=== PATIENT | male | born 1955 | race African-American/Black ===

== ENCOUNTER 2017-09-12 12:44 | Inpatient (IN) | payer OTHER ==
[2017-09-12 13:50] VITALS: BMI 22.2
--- NOTE | 2017-09-12 16:20 | HP ---
CIWA Score - CIWA Score Nausea/Vomitin-No Nausea/No Vomiting Muscle Tremors: 4-Moderate,w/Arms Extend Anxiety: 2 Agitation: 0-Normal Activity Paroxysmal Sweats: 1-Minimal Palms Moist Orientation: 0-Oriented Tacttile Disturbances: 0-None Auditory Disturbances: 1-Very Mild Visual Disturbances: 2-Mild Sensitivity Headache: 2-Mild CIWA-Ar Total Score: 12 Admission ROS S - HPI Chief Complaint: "I am here for detox, i am a diabetic and I dont feel well" Allergies/Adverse Reactions: Allergies Allergy/AdvReac Type Severity Reaction Status Date / Time No Known Allergies Allergy Verified 09/12/17 15:51 History of Present Illness: Patient is a 62 yo male with hx of alcohol dependence is here seeking detox. PMHX: HTN, DMII insulin dependent, depression. Denies suicidal ideation or homicidal, or suidie attempts. [place] three weeks ago for alcohol intoxication. Denies hx of seizures, reports blackouts with last episode three months ago Longest period of sobriety 1 year. Exam Limitations: No Limitations (Patient i) - Ebola screening Have you traveled outside of the country in the last 21 days: No Have you had contact with anyone from an Ebola affected area: No Have you been sick,other than usual withdrawal symptoms: No - Review of Systems Constitutional: Chills, Loss of Appetite, Changes in sleep, Unintentional Wgt. Loss (10 lbs over the past two - three weeks) EENT: reports: No Symptoms Reported Respiratory: reports: No Symptoms reported GI: reports: No Symptoms Reported, Poor Appetite, Poor Fluid Intake : reports: No Symptoms Reported Musculoskeletal: reports: Back Pain Integumentary: reports: No Symptoms Reported Neuro: reports: Headache Endocrine: reports: Increased Thirst Hematology: reports: No Symptoms Reported Psychiatric: reports: Orientated x3, Depressed Other Systems: Reviewed and Negative Patient History - Patient Medical History Hx Anemia: No Hx Asthma: No Hx Chronic Obstructive Pulmonary Disease (COPD): No Hx Cancer: No Hx Cardiac Disorders: No Hx Congestive Heart Failure: No Hx Hypertension: Yes Hx Hypercholesterolemia: No Hx Pacemaker: No HX Cerebrovascular Accident: No Hx Seizures: No Hx Dementia: No Hx Diabetes: Yes Hx Gastrointestinal Disorders: No Hx Liver Disease: No (HISTORY OF PANCREATITIS) Hx Genitourinary Disorders: No Hx Sexually Transmitted Disorders: No Hx Renal Disease (ESRD): No Hx Thyroid Disease: No Hx Human Immunodeficiency Virus (HIV): No ( last tested 6 months ago ) Hx Hepatitis C: No (2016 NEGATIVE) Hx Depression: Yes Hx Suicide Attempt: No Hx Bipolar Disorder: No Hx Schizophrenia: No - Patient Surgical History Past Surgical History: No Hx Neurologic Surgery: No Hx Cataract Extraction: No Hx Cardiac Surgery: No Hx Lung Surgery: No Hx Breast Surgery: No Hx Breast Biopsy: No Hx Abdominal Surgery: Yes (removal of pseudocyst of pancreasin 1991) Hx Appendectomy: No Hx Cholecystectomy: No Hx Genitourinary Surgery: No Hx Section: No Hx Orthopedic Surgery: No Anesthesia Reaction: No - PPD History Previous Implant?: Yes Documented Results: Positive w/o proof Implanted On Prior [facility] Admission?: No Results: CXR 09/30/15 PPD to be Administered?: No - Reproductive History Patient is a Female of Child Bearing Age (11 -55 yrs old): No - Smoking Cessation Smoking history: Former smoker Have you smoked in the past 12 months: No Aproximately how many cigarettes per day: 20 If you are a former smoker, when did you quit?: 2007 Hx Chewing Tobacco Use: No Initiated information on smoking cessation: No - Substance & Tx. History Hx Alcohol Use: Yes Hx Substance Use: Yes Substance Use Type: Alcohol Hx Substance Use Treatment: Yes (Alcohol three weeks ago at [facility] ) - Substances Abused Alcohol Route: Oral Frequency: Daily Amount used: 3 PINTS WINE/ 3 BEERS Age of first use: 13 Date of Last Use: 09/12/17 Family Disease History - Family Disease History Family Disease History: Heart Disease: [facility] [place] [facility] Other: Father Admission Physical Exam [facility] - Vital Signs Vital Signs: Vital Signs - 24 hr 09/12/17 13:48 Temperature 96.8 F L Pulse Rate 91 H Respiratory 20 Rate Blood Pressure 111/75 - Physical General Appearance: Yes: Disheveled, Alcohol on Breath, Thin, Anxious HEENTM: Yes: EOMI, Hearing grossly Normal, Normal ENT Inspection, Normocephalic , Normal Voice, KRISTIE, Pharynx Normal, Tm's normal, Other (wears glasses, chelithis) Respiratory: Yes: Chest Non-Tender, Lungs Clear, Normal Breath Sounds, No Respiratory Distress Neck: Yes: No masses,lesions,Nodules, Trachea in good position Breast: Yes: Breast Exam Deferred Cardiology: Yes: Regular Rhythm, Regular Rate Abdominal: Yes: Normal Bowel Sounds, Non Tender, Soft, Protuberent, Surgical Scar Genitourinary: Yes: Within Normal Limits Back: Yes: Normal Inspection Musculoskeletal: Yes: full range of Motion, Gait Steady, Pelvis Stable Extremities: Yes: Normal Inspection, Non-Tender Neurological: Yes: natural resources engineer II-XII NML intact, Fully Oriented, Alert, Motor Strength 5/5, Depressed Affect Integumentary: Yes: Within Normal Limits, Normal Color, Warm, Moist Lymphatic: Yes: Within Normal Limits - Diagnostic (1) Hyperglycemia Current Visit: Yes Status: Acute (2) Dehydration Current Visit: Yes Status: Acute (3) Depressed mood Current Visit: Yes Status: Acute (4) Alcohol dependence with uncomplicated withdrawal Current Visit: Yes Status: Acute (5) Diabetes mellitus type II, uncontrolled Current Visit: Yes Status: Chronic Qualifiers: Diabetes mellitus agricultural crop farm manager insulin use: with agricultural crop farm manager use Diabetes mellitus complication status: without complication Qualified Code(s): E11.65 - Type 2 diabetes mellitus with hyperglycemia; Z79.4 - lead radiologic technologist (current) use of insulin; Z79.4 - FDC (current) use of insulin; Z79.4 - lead radiologic technologist ( current) use of insulin; Z79.4 - lead radiologic technologist (current) use of insulin (6) Hypertension Current Visit: Yes Status: Chronic Qualifiers: Hypertension type: essential hypertension Cleared for Admission [facility] - Detox or Rehab [facility] Level of Care: Medically Managed Detox Regimen/Protocol: Librium [facility] Breath Alcohol Content Breath Alcohol Content: 0.167 Urine Drug Screen - Results Drug Screen Negative: No Urine Drug Screen Results: BZO-Benzodiazepines
[2017-09-12] MEDS ORDERED: hydrOXYzine PAMOATE 50 MG CAPSULE (FP) PO PRN (16:23)
[2017-09-12] MEDS ORDERED: guaiFENesin/D-METHORPHAN HB 10 ML UNIT-DOSE CUPS PO PRN (16:23)
[2017-09-12] MEDS ORDERED: ACETAMINOPHEN 325 MG TABLET (FP) PO PRN (16:23)
[2017-09-12] MEDS ORDERED: IBUPROFEN 400 MG TABLET (FP) PO PRN (16:23)
[2017-09-12] MEDS ORDERED: MAGNESIUM CITRATE 300 ML BOTTLE PO PRN (16:23)
[2017-09-12] MEDS ORDERED: MENTHOL/PHENOL 1 EACH UD MM PRN (16:23)
[2017-09-12] MEDS ORDERED: LOPERAMIDE HCL 2 MG CAPSULE PO PRN (16:23)
[2017-09-12] MEDS ORDERED: chlordiazePOXIDE HCL 25 MG CAPSULE PO PRN (16:23)
[2017-09-12] MEDS ORDERED: MAGNESIUM HYDROX 2400MG/30ML ORAL SUSPENSION 30 ML CUP PO PRN (16:23)
[2017-09-12] MEDS ORDERED: MAG HYDROX/AL HYDROX/SIMETH 30 ML UNIT-DOSE CUP PO PRN (16:23)
[2017-09-12] MEDS ORDERED: INSULIN SLIDING SCALE (NOVOLOG) 1 VIAL SQ SCH (16:30)
[2017-09-12] MEDS ORDERED: chlordiazePOXIDE HCL 25 MG CAPSULE PO ONE (17:45)
[2017-09-12] MEDS ORDERED: INSULIN (NOVOLOG) ASPART 100 UNITS/ML 10ML VIAL ONE (19:09)
[2017-09-12] MEDS: INSULIN SLIDING SCALE (NOVOLOG) 1 VIAL SQ SCH (19:14)
[2017-09-12] MEDS: chlordiazePOXIDE HCL 25 MG CAPSULE PO SCH (22:20)
[2017-09-12] MEDS: THIAMINE HCL 100 MG TABLET (FP) PO SCH (22:20)
[2017-09-12] MEDS: INSULIN (LEVEMIR) 100 UNITS/ML UNITS SQ SCH (22:21)
[2017-09-12] MEDS: MELATONIN 5 MG TABLETS PO PRN (22:23)
[2017-09-13 00:32] LABS: URINE APPEARANCE CLEAR; URINE BILIRUBIN NEGATIVE (<2.0 mg/dL); URINE COLOR LTYELLOW; URINE GLUCOSE (UA) 1+ (NEGATIVE); URINE KETONE NEGATIVE (NEGATIVE); URINE LEUK ESTERASE NEGATIVE (NEGATIVE); URINE NITRITE NEGATIVE (NEGATIVE); URINE PROTEIN NEGATIVE (NEGATIVE); URINE UROBILINOGEN NEGATIVE mg/dL (0.2-1.0)
[2017-09-13] MEDS: chlordiazePOXIDE HCL 25 MG CAPSULE PO SCH ×4 (05:47→22:21)
[2017-09-13] MEDS: INSULIN SLIDING SCALE (NOVOLOG) 1 VIAL SQ SCH ×2 (08:10→17:37)
[2017-09-13 10:16] LABS: HEMOGLOBIN 11.6 GM/dL (11.7-16.9); MCH 30.9 pg (25.7-33.7); MCHC 34.1 g/dl (32.0-35.9); MEAN CELL VOLUME 90.5 fl (80-96); MEAN PLT VOLUME 8.5 fl (7.5-11.1); PLATELET COUNT 289 K/MM3 (134-434); RBC 3.76 M/mm3 (4.00-5.60); WHITE BLOOD COUNT 7.2 K/mm3 (4.0-10.0)
[2017-09-13 10:27] LABS: ALBUMIN 2.7 g/dl (3.4-5.0); ANION GAP 9 (8-16); BILIRUBIN,TOTAL 0.3 mg/dL (0.2-1.0); BLOOD UREA NITROGEN 7 mg/dL (7-18); CALCIUM 8.3 mg/dL (8.5-10.1); CHLORIDE 103 mmol/L (98-107); CO2 28 mmol/L (21-32); POTASSIUM 3.7 mmol/L (3.5-5.1); SGOT/AST 34 U/L (15-37); SGPT/ALT 28 U/L (12-78); SODIUM 140 mmol/L (136-145); TOT PROT 6.7 g/dl (6.4-8.2)
[2017-09-13 10:31] LABS: ALK PHOS 102 U/L (45-117); CREATININE 0.8 mg/dL (0.7-1.3)
[2017-09-13] MEDS: ASPIRIN 81 MG CHEWABLE TABLETS PO SCH (10:38)
[2017-09-13] MEDS: PRENATAL VITAMINS W/ FOLIC ACID TABLET (FP) PO SCH (10:38)
[2017-09-13] MEDS: ENALAPRIL MALEATE 2.5 MG TABLET (FP) PO SCH (10:38)
[2017-09-13 10:43] LABS: GLUCOSE,RANDOM 49 mg/dL (74-106)
[2017-09-13 12:05] LABS: RPR REACTIVE 1:1 (NONREACTIVE)
[2017-09-13 12:07] LABS: TREPONEMA ANTIBODY PREVIOUSLY REACTIVE (NONREACTIVE)
--- NOTE | 2017-09-13 13:27 | PN ---
[facility] CIWA - CIWA Score Nausea/Vomitin-No Nausea/No Vomiting Muscle Tremors: 4-Moderate,w/Arms Extend Anxiety: 4-Mod. Anxious/Guarded Agitation: 4-Moderately Restless Paroxysmal Sweats: 1-Minimal Palms Moist Orientation: 0-Oriented Tacttile Disturbances: 0-None Auditory Disturbances: 0-None Visual Disturbances: 0-None Headache: 0-None Present CIWA-Ar Total Score: 13 S Progress Note (SOAP) Subjective: ANXIETY,SWEATS,MODERATE TREMORS,INTERMITTENT SLEEP. Objective: 09/13/17 13:27 Vital Signs Temperature 98.9 F 09/13/17 09:11 Pulse Rate 101 H 09/13/17 09:11 Respiratory Rate 20 09/13/17 09:11 Blood Pressure 108/69 09/13/17 09:11 O2 Sat by Pulse Oximetry (%) Laboratory Last Values WBC 7.2 K/mm3 (4.0-10.0) D 09/13/17 08:30 RBC 3.76 M/mm3 (4.00-5.60) L 09/13/17 08:30 Hgb 11.6 GM/dL (11.7-16.9) L 09/13/17 08:30 Hct 34.0 % (35.4-49) L 09/13/17 08:30 MCV 90.5 fl (80-96) 09/13/17 08:30 MCH 30.9 pg (25.7-33.7) 09/13/17 08:30 MCHC 34.1 g/dl (32.0-35.9) 09/13/17 08:30 RDW 15.0 % (11.9-15.9) 09/13/17 08:30 Plt Count 289 K/MM3 (134-434) D 09/13/17 08:30 MPV 8.5 fl (7.5-11.1) D 09/13/17 08:30 Sodium 140 mmol/L (136-145) 09/13/17 08:30 Potassium 3.7 mmol/L (3.5-5.1) 09/13/17 08:30 Chloride 103 mmol/L (98-107) 09/13/17 08:30 Carbon Dioxide 28 mmol/L (21-32) 09/13/17 08:30 Anion Gap 9 (8-16) 09/13/17 08:30 BUN 7 mg/dL (7-18) 09/13/17 08:30 Creatinine 0.8 mg/dL (0.7-1.3) 09/13/17 08:30 Creat Clearance w eGFR > 60 (>60) 09/13/17 08:30 POC Glucometer 92 UNITS (80-120) 09/13/17 05:46 Random Glucose 49 mg/dL (74-106) L* D 09/13/17 08:30 Calcium 8.3 mg/dL (8.5-10.1) L 09/13/17 08:30 Total Bilirubin 0.3 mg/dL (0.2-1.0) D 09/13/17 08:30 AST 34 U/L (15-37) D 09/13/17 08:30 ALT 28 U/L (12-78) D 09/13/17 08:30 Alkaline Phosphatase 102 U/L (45-117) 09/13/17 08:30 Total Protein 6.7 g/dl (6.4-8.2) 09/13/17 08:30 Albumin 2.7 g/dl (3.4-5.0) L D 09/13/17 08:30 Urine Color Ltyellow 09/12/17 00:00 Urine Appearance Clear 09/12/17 00:00 Urine pH 5.0 (5.0-8.0) 09/12/17 00:00 Ur Specific [place] 1.011 (1.001-1.035) 09/12/17 00:00 Urine Protein Negative (NEGATIVE) 09/12/17 00:00 Urine Glucose (UA) 1+ (NEGATIVE) H 09/12/17 00:00 Urine Ketones Negative (NEGATIVE) 09/12/17 00:00 Urine Blood Negative (NEGATIVE) 09/12/17 00:00 Urine Nitrite Negative (NEGATIVE) 09/12/17 00:00 Urine Bilirubin Negative (<2.0 mg/dL) 09/12/17 00:00 Urine Urobilinogen Negative mg/dL (0.2-1.0) 09/12/17 00:00 Ur Leukocyte Esterase Negative (NEGATIVE) 09/12/17 00:00 RPR Titer Reactive 1:1 (NONREACTIVE) H 09/13/17 08:30 T.pallidum Ab (MHA) Previously reactive (NONREACTIVE) 09/13/17 08:30 HIV 1&2 Antibody Screen Negative 09/13/17 08:30 HIV P24 Antigen Negative 09/13/17 08:30 Assessment: 09/13/17 13:27 WITHDRAWAL SX Plan: CONTINUE DETOX LIBRIUM 50 MG PO ONCE AT 1400 TODAY.
--- NOTE | 2017-09-13 14:23 | CONSULT ---
[facility] Psychiatric Consult - Data Date of interview: 09/13/17 Admission source: [facility] Identifying data: Readmission to [facility] for this 62 y/o AA male seeking detox treatment on for alcohol dependence.Patient is a ,father of one,domiciled,currently unemployed and supported on Public Assistance. Substance Abuse History: Confirmed by patient in this session.Details in current [facility] reports as follows : Smoking history: Former smoker. Have you smoked in the past 12 months: No. Aproximately how many cigarettes per day: 20. If you are a former smoker, when did you quit?: 2007. Hx Chewing Tobacco Use: No. Initiated information on smoking cessation: No. - Substance & Tx. History. Hx Alcohol Use: Yes. Hx Substance Use: Yes. Substance Use Type: Alcohol. Hx Substance Use Treatment: Yes (Alcohol three weeks ago at [facility] ). - Substances Abused. Alcohol. Route: Oral. Frequency: Daily. Amount used: 3 PINTS WINE/ 3 BEERS. Age of first use: 13. Date of Last Use: 09/12/17 Medical History: Diabetes mellitus,hypertension,past history of pancreatitis and abdominal surgery (excision of a pancreatic pseudocyst) in 1991. Psychiatric History: Patient denies history of psychiatric hospitalizations.He, however,reports [facility].Diagnosed with MDD and treated with bupropion.Mr Fernandez admits to sub- optimal adherence to treatment (sporadic attendance,irregular medication intake, alcohol abuse).Still endorses periods of anhedonia,low energy,depressed mood, neurovegetative issues (poor sleep/appetite) and transient but vague suicidal thoughts in the past.Patient denies suicide attempts. Physical/Sexual Abuse/Trauma History: No reported history of suicide abuse.Traumatized by the of two years ago.Denies nighmares or flashbacks. Additional Comment: Urine Drug Screen Results: BZO-Benzodiazepines.Noted. Mental Status Exam - Mental Status Exam Alert and Oriented to: Time, Place, Person Cognitive Function: Good Patient Appearance: Disheveled (short stature,unshaven) Mood: Sad, Withdrawn, Anxious Affect: Mood Congruent, Constricted Patient Behavior: Fatigued, Appropriate, Cooperative Speech Pattern: Clear Voice Loudness: Normal Thought Process: Intact, Goal Oriented Thought Disorder: Not Present Hallucinations: Denies Suicidal Ideation: Denies Homicidal Ideation: Denies Insight/Judgement: Poor Sleep: Poorly, Difficulty falling asleep Appetite: Poor, Weight loss Muscle strength/Tone: Normal Gait/Station: Normal Psychiatric Findings - Problem List ([place] 1, 2,3) (1) Alcohol dependence with uncomplicated withdrawal Current Visit: Yes Status: Acute (2) Alcohol-induced mood disorder Current Visit: Yes Status: Acute (3) Nicotine dependence Current Visit: Yes Status: Suspected Qualifiers: Nicotine product type: cigarettes Substance use status: in withdrawal Qualified Code(s): F17.213 - Nicotine dependence, cigarettes, with withdrawal (4) Depressive disorder Current Visit: Yes Status: Chronic (5) Insomnia Current Visit: Yes Status: Acute - Initial Treatment Plan Initial Treatment Plan: Psychoeducation and support.Detoxification.Option of antidepressant medications discussed with the patient.Mr Fernandez expresses the wish to resume treatment with wellbutrin.Will restart wellbutrin 75 mg po daily.Side effects/benefits discussed.Patient is made aware of the risk of seizures.Consent (verbal) given.Observation.
[2017-09-13] MEDS ORDERED: chlordiazePOXIDE HCL 25 MG CAPSULE PO ONE (14:30)
--- NOTE | 2017-09-13 16:59 | EKG ---
Test Reason : Blood Pressure : / mmHG Vent. Rate : 068 BPM Atrial Rate : 068 BPM P-R Int : 164 ms QRS Dur : 088 ms QT Int : 388 ms P-R-T Axes : 052 046 049 degrees QTc Int : 412 ms NORMAL SINUS RHYTHM NORMAL ECG WHEN COMPARED WITH ECG OF 05-AUG-2016 13:09, NO SIGNIFICANT CHANGE WAS FOUND Confirmed by MD Rojas Edward ([id number]) on 09/13/2017 4:59:32 PM Referred By: Confirmed By:Guille Rojas MD
[2017-09-13] MEDS ORDERED: INSULIN (NOVOLOG) ASPART 100 UNITS/ML 10ML VIAL ONE (17:18)
[2017-09-13] MEDS: THIAMINE HCL 100 MG TABLET (FP) PO SCH (22:21)
[2017-09-13] MEDS: INSULIN (LEVEMIR) 100 UNITS/ML UNITS SQ SCH (22:21)
[2017-09-13] MEDS: MELATONIN 5 MG TABLETS PO PRN (22:22)
[2017-09-14] MEDS: chlordiazePOXIDE HCL 25 MG CAPSULE PO SCH ×3 (05:55→18:41)
[2017-09-14] MEDS: INSULIN SLIDING SCALE (NOVOLOG) 1 VIAL SQ SCH ×2 (08:09→16:30)
[2017-09-14] MEDS: PRENATAL VITAMINS W/ FOLIC ACID TABLET (FP) PO SCH (10:37)
[2017-09-14] MEDS: ASPIRIN 81 MG CHEWABLE TABLETS PO SCH (10:37)
[2017-09-14] MEDS: buPROPion HCL 75 MG TABLET PO SCH (10:37)
--- NOTE | 2017-09-14 13:33 | PN ---
[facility] CIWA - CIWA Score Nausea/Vomitin-No Nausea/No Vomiting Muscle Tremors: 4-Moderate,w/Arms Extend Anxiety: 4-Mod. Anxious/Guarded Agitation: 3 Paroxysmal Sweats: 1-Minimal Palms Moist Orientation: 0-Oriented Tacttile Disturbances: 0-None Auditory Disturbances: 0-None Visual Disturbances: 0-None Headache: 0-None Present CIWA-Ar Total Score: 12 BHS Progress Note (SOAP) Subjective: ANXIETY,TREMORS,SWEATS,FATIGUE. Objective: 09/14/17 14:17 Vital Signs Temperature 97.3 F L 09/14/17 11:16 Pulse Rate 70 09/14/17 11:16 Respiratory Rate 20 09/14/17 11:16 Blood Pressure 96/66 09/14/17 11:16 O2 Sat by Pulse Oximetry (%) Laboratory Last Values WBC 7.2 K/mm3 (4.0-10.0) D 09/13/17 08:30 RBC 3.76 M/mm3 (4.00-5.60) L 09/13/17 08:30 Hgb 11.6 GM/dL (11.7-16.9) L 09/13/17 08:30 Hct 34.0 % (35.4-49) L 09/13/17 08:30 MCV 90.5 fl (80-96) 09/13/17 08:30 MCH 30.9 pg (25.7-33.7) 09/13/17 08:30 MCHC 34.1 g/dl (32.0-35.9) 09/13/17 08:30 RDW 15.0 % (11.9-15.9) 09/13/17 08:30 Plt Count 289 K/MM3 (134-434) D 09/13/17 08:30 MPV 8.5 fl (7.5-11.1) D 09/13/17 08:30 Sodium 140 mmol/L (136-145) 09/13/17 08:30 Potassium 3.7 mmol/L (3.5-5.1) 09/13/17 08:30 Chloride 103 mmol/L (98-107) 09/13/17 08:30 Carbon Dioxide 28 mmol/L (21-32) 09/13/17 08:30 Anion Gap 9 (8-16) 09/13/17 08:30 BUN 7 mg/dL (7-18) 09/13/17 08:30 Creatinine 0.8 mg/dL (0.7-1.3) 09/13/17 08:30 Creat Clearance w eGFR > 60 (>60) 09/13/17 08:30 POC Glucometer 148 UNITS (80-120) 09/14/17 05:53 Random Glucose 49 mg/dL (74-106) L* D 09/13/17 08:30 Calcium 8.3 mg/dL (8.5-10.1) L 09/13/17 08:30 Total Bilirubin 0.3 mg/dL (0.2-1.0) D 09/13/17 08:30 AST 34 U/L (15-37) D 09/13/17 08:30 ALT 28 U/L (12-78) D 09/13/17 08:30 Alkaline Phosphatase 102 U/L (45-117) 09/13/17 08:30 Total Protein 6.7 g/dl (6.4-8.2) 09/13/17 08:30 Albumin 2.7 g/dl (3.4-5.0) L D 09/13/17 08:30 Urine Color Ltyellow 09/12/17 00:00 Urine Appearance Clear 09/12/17 00:00 Urine pH 5.0 (5.0-8.0) 09/12/17 00:00 Ur Specific [place] 1.011 (1.001-1.035) 09/12/17 00:00 Urine Protein Negative (NEGATIVE) 09/12/17 00:00 Urine Glucose (UA) 1+ (NEGATIVE) H 09/12/17 00:00 Urine Ketones Negative (NEGATIVE) 09/12/17 00:00 Urine Blood Negative (NEGATIVE) 09/12/17 00:00 Urine Nitrite Negative (NEGATIVE) 09/12/17 00:00 Urine Bilirubin Negative (<2.0 mg/dL) 09/12/17 00:00 Urine Urobilinogen Negative mg/dL (0.2-1.0) 09/12/17 00:00 Ur Leukocyte Esterase Negative (NEGATIVE) 09/12/17 00:00 RPR Titer Reactive 1:1 (NONREACTIVE) H 09/13/17 08:30 T.pallidum Ab (MHA) Previously reactive (NONREACTIVE) 09/13/17 08:30 HIV 1&2 Antibody Screen Negative 09/13/17 08:30 HIV P24 Antigen Negative 09/13/17 08:30 Assessment: 09/14/17 14:18 WITHDRAWAL SX Plan: CONTINUE DETOX
[2017-09-14] MEDS: P-EPHED 60MG/TRIPROLIDI 2.5MG TABLET PO PRN (13:58)
[2017-09-14] MEDS: ENALAPRIL MALEATE 2.5 MG TABLET (FP) PO SCH (14:00)
[2017-09-14] MEDS ORDERED: INSULIN (NOVOLOG) ASPART 100 UNITS/ML 10ML VIAL ONE (17:59)
[2017-09-14] MEDS: INSULIN (LEVEMIR) 100 UNITS/ML UNITS SQ SCH (22:24)
[2017-09-14] MEDS: THIAMINE HCL 100 MG TABLET (FP) PO SCH (22:24)
[2017-09-14] MEDS: chlordiazePOXIDE 5 MG CAPSULE PO SCH (22:24)
[2017-09-14] MEDS: MELATONIN 5 MG TABLETS PO PRN (22:25)
[2017-09-15] MEDS: chlordiazePOXIDE 5 MG CAPSULE PO SCH ×3 (04:58→17:35)
[2017-09-15] MEDS ORDERED: INSULIN (NOVOLOG) ASPART 100 UNITS/ML 10ML VIAL ONE ×2 (07:43→17:19)
[2017-09-15] MEDS: INSULIN SLIDING SCALE (NOVOLOG) 1 VIAL SQ SCH ×2 (07:51→16:36)
[2017-09-15] MEDS: ASPIRIN 81 MG CHEWABLE TABLETS PO SCH (10:45)
[2017-09-15] MEDS: PRENATAL VITAMINS W/ FOLIC ACID TABLET (FP) PO SCH (10:45)
[2017-09-15] MEDS: ENALAPRIL MALEATE 2.5 MG TABLET (FP) PO SCH (10:45)
[2017-09-15] MEDS: buPROPion HCL 75 MG TABLET PO SCH (10:45)
--- NOTE | 2017-09-15 11:47 | PN ---
S Progress Note (SOAP) Subjective: ANXIETY,SLIGHT TREMORS, NASAL CONGESTION, DIARRHEA. Objective: 09/15/17 11:44 Vital Signs Temperature 97.2 F L 09/15/17 09:14 Pulse Rate 93 H 09/15/17 09:14 Respiratory Rate 20 09/15/17 09:14 Blood Pressure 121/84 09/15/17 09:14 O2 Sat by Pulse Oximetry (%) Laboratory Last Values WBC 7.2 K/mm3 (4.0-10.0) D 09/13/17 08:30 RBC 3.76 M/mm3 (4.00-5.60) L 09/13/17 08:30 Hgb 11.6 GM/dL (11.7-16.9) L 09/13/17 08:30 Hct 34.0 % (35.4-49) L 09/13/17 08:30 MCV 90.5 fl (80-96) 09/13/17 08:30 MCH 30.9 pg (25.7-33.7) 09/13/17 08:30 MCHC 34.1 g/dl (32.0-35.9) 09/13/17 08:30 RDW 15.0 % (11.9-15.9) 09/13/17 08:30 Plt Count 289 K/MM3 (134-434) D 09/13/17 08:30 MPV 8.5 fl (7.5-11.1) D 09/13/17 08:30 Sodium 140 mmol/L (136-145) 09/13/17 08:30 Potassium 3.7 mmol/L (3.5-5.1) 09/13/17 08:30 Chloride 103 mmol/L (98-107) 09/13/17 08:30 Carbon Dioxide 28 mmol/L (21-32) 09/13/17 08:30 Anion Gap 9 (8-16) 09/13/17 08:30 BUN 7 mg/dL (7-18) 09/13/17 08:30 Creatinine 0.8 mg/dL (0.7-1.3) 09/13/17 08:30 Creat Clearance w eGFR > 60 (>60) 09/13/17 08:30 POC Glucometer 203 UNITS (80-120) 09/15/17 04:57 Random Glucose 49 mg/dL (74-106) L* D 09/13/17 08:30 Calcium 8.3 mg/dL (8.5-10.1) L 09/13/17 08:30 Total Bilirubin 0.3 mg/dL (0.2-1.0) D 09/13/17 08:30 AST 34 U/L (15-37) D 09/13/17 08:30 ALT 28 U/L (12-78) D 09/13/17 08:30 Alkaline Phosphatase 102 U/L (45-117) 09/13/17 08:30 Total Protein 6.7 g/dl (6.4-8.2) 09/13/17 08:30 Albumin 2.7 g/dl (3.4-5.0) L D 09/13/17 08:30 Urine Color Ltyellow 09/12/17 00:00 Urine Appearance Clear 09/12/17 00:00 Urine pH 5.0 (5.0-8.0) 09/12/17 00:00 Ur Specific [place] 1.011 (1.001-1.035) 09/12/17 00:00 Urine Protein Negative (NEGATIVE) 09/12/17 00:00 Urine Glucose (UA) 1+ (NEGATIVE) H 09/12/17 00:00 Urine Ketones Negative (NEGATIVE) 09/12/17 00:00 Urine Blood Negative (NEGATIVE) 09/12/17 00:00 Urine Nitrite Negative (NEGATIVE) 09/12/17 00:00 Urine Bilirubin Negative (<2.0 mg/dL) 09/12/17 00:00 Urine Urobilinogen Negative mg/dL (0.2-1.0) 09/12/17 00:00 Ur Leukocyte Esterase Negative (NEGATIVE) 09/12/17 00:00 RPR Titer Reactive 1:1 (NONREACTIVE) H 09/13/17 08:30 T.pallidum Ab (MHA) Previously reactive (NONREACTIVE) 09/13/17 08:30 HIV 1&2 Antibody Screen Negative 09/13/17 08:30 HIV P24 Antigen Negative 09/13/17 08:30 Assessment: 09/15/17 11:47 WITHDRAWAL SX Plan: CONTINUE DETOX
[2017-09-15] MEDS: P-EPHED 60MG/TRIPROLIDI 2.5MG TABLET PO PRN (11:51)
[2017-09-15] MEDS: chlordiazePOXIDE HCL 10 MG CAPSULE PO SCH (22:22)
[2017-09-15] MEDS: INSULIN (LEVEMIR) 100 UNITS/ML UNITS SQ SCH (22:22)
[2017-09-15] MEDS: THIAMINE HCL 100 MG TABLET (FP) PO SCH (22:22)
[2017-09-15] MEDS: MELATONIN 5 MG TABLETS PO PRN (22:23)
[2017-09-16] MEDS: chlordiazePOXIDE HCL 10 MG CAPSULE PO SCH ×2 (05:27→12:06)
[2017-09-16] MEDS: INSULIN SLIDING SCALE (NOVOLOG) 1 VIAL SQ SCH (06:11)
[2017-09-16] MEDS: PRENATAL VITAMINS W/ FOLIC ACID TABLET (FP) PO SCH (10:23)
[2017-09-16] MEDS: buPROPion HCL 75 MG TABLET PO SCH (10:23)
[2017-09-16] MEDS: ASPIRIN 81 MG CHEWABLE TABLETS PO SCH (10:25)
[2017-09-16] MEDS: ENALAPRIL MALEATE 2.5 MG TABLET (FP) PO SCH (10:25)
[2017-09-16 11:00] VITALS: BP 104/70; PULSE 84; TEMP 98.5
--- NOTE | 2017-09-16 14:42 | PN ---
S Progress Note (SOAP) Subjective: DETOX COMPLETED. ALERT O X 3. NAD. PT WILL FOLLOW UP WITH PCP AT [facility] FOR MEDICAL MANAGEMENT NEEDED. Objective: 09/16/17 14:42 Vital Signs Temperature 98.5 F 09/16/17 11:00 Pulse Rate 84 09/16/17 11:00 Respiratory Rate 20 09/16/17 11:00 Blood Pressure 104/70 09/16/17 11:00 O2 Sat by Pulse Oximetry (%) Laboratory Last Values WBC 7.2 K/mm3 (4.0-10.0) D 09/13/17 08:30 RBC 3.76 M/mm3 (4.00-5.60) L 09/13/17 08:30 Hgb 11.6 GM/dL (11.7-16.9) L 09/13/17 08:30 Hct 34.0 % (35.4-49) L 09/13/17 08:30 MCV 90.5 fl (80-96) 09/13/17 08:30 MCH 30.9 pg (25.7-33.7) 09/13/17 08:30 MCHC 34.1 g/dl (32.0-35.9) 09/13/17 08:30 RDW 15.0 % (11.9-15.9) 09/13/17 08:30 Plt Count 289 K/MM3 (134-434) D 09/13/17 08:30 MPV 8.5 fl (7.5-11.1) D 09/13/17 08:30 Sodium 140 mmol/L (136-145) 09/13/17 08:30 Potassium 3.7 mmol/L (3.5-5.1) 09/13/17 08:30 Chloride 103 mmol/L (98-107) 09/13/17 08:30 Carbon Dioxide 28 mmol/L (21-32) 09/13/17 08:30 Anion Gap 9 (8-16) 09/13/17 08:30 BUN 7 mg/dL (7-18) 09/13/17 08:30 Creatinine 0.8 mg/dL (0.7-1.3) 09/13/17 08:30 Creat Clearance w eGFR > 60 (>60) 09/13/17 08:30 POC Glucometer 91 UNITS (80-120) 09/16/17 05:27 Random Glucose 49 mg/dL (74-106) L* D 09/13/17 08:30 Calcium 8.3 mg/dL (8.5-10.1) L 09/13/17 08:30 Total Bilirubin 0.3 mg/dL (0.2-1.0) D 09/13/17 08:30 AST 34 U/L (15-37) D 09/13/17 08:30 ALT 28 U/L (12-78) D 09/13/17 08:30 Alkaline Phosphatase 102 U/L (45-117) 09/13/17 08:30 Total Protein 6.7 g/dl (6.4-8.2) 09/13/17 08:30 Albumin 2.7 g/dl (3.4-5.0) L D 09/13/17 08:30 Urine Color Ltyellow 09/12/17 00:00 Urine Appearance Clear 09/12/17 00:00 Urine pH 5.0 (5.0-8.0) 09/12/17 00:00 Ur Specific [place] 1.011 (1.001-1.035) 09/12/17 00:00 Urine Protein Negative (NEGATIVE) 09/12/17 00:00 Urine Glucose (UA) 1+ (NEGATIVE) H 09/12/17 00:00 Urine Ketones Negative (NEGATIVE) 09/12/17 00:00 Urine Blood Negative (NEGATIVE) 09/12/17 00:00 Urine Nitrite Negative (NEGATIVE) 09/12/17 00:00 Urine Bilirubin Negative (<2.0 mg/dL) 09/12/17 00:00 Urine Urobilinogen Negative mg/dL (0.2-1.0) 09/12/17 00:00 Ur Leukocyte Esterase Negative (NEGATIVE) 09/12/17 00:00 RPR Titer Reactive 1:1 (NONREACTIVE) H 09/13/17 08:30 T.pallidum Ab (MHA) Previously reactive (NONREACTIVE) 09/13/17 08:30 HIV 1&2 Antibody Screen Negative 09/13/17 08:30 HIV P24 Antigen Negative 09/13/17 08:30 Assessment: 09/16/17 14:42 MEDICALLY STABLE Plan: D/C PT TODAY.
--- NOTE | 2017-09-16 14:45 | DS ---
[facility] Detox Discharge Summary Admission Date: 09/12/17 Discharge Date: 09/16/17 - History Present History: Alcohol Dependence Additional Comments: DETOX COMPLETED PER PROTOCOL. NAD. ALERT O X 3. PT TO FOLLOW UP WITH PCP AT [facility] FOR MEDICAL MANAGEMENT. Pertinent Past History: PLEAS SEE DX BELOW - Physical Exam Results Vital Signs: Vital Signs Temperature 98.5 F 09/16/17 11:00 Pulse Rate 84 09/16/17 11:00 Respiratory Rate 20 09/16/17 11:00 Blood Pressure 104/70 09/16/17 11:00 O2 Sat by Pulse Oximetry (%) Pertinent Admission Physical Exam Findings: WITHDRAWAL SX - Treatment Hospital Course: Detox Protocol Followed, Detoxed Safely, Responded well, Discharged Condition Good - Medication Discharge Medications: Ambulatory Orders Aspirin [ASA -] 81 mg PO DAILY #30 tab.chew 11/12/15 Insulin Glargine,Hum.rec.anlog [Lantus Solostar PEN -] 12 units SQ HS 08/05/16 Mirtazapine [Remeron -] 15 mg PO HS #30 tablet 08/05/16 Enalapril Maleate [Vasotec -] 2.5 mg PO DAILY #30 tablet 08/09/16 - Diagnosis (1) Alcohol dependence with uncomplicated withdrawal Status: Acute (2) Dehydration Status: Acute (3) Diabetes mellitus type II, uncontrolled Status: Chronic Qualifiers: Diabetes mellitus nursing home insulin use: with termite exterminator use Diabetes mellitus complication status: without complication Qualified Code(s): E11.65 - Type 2 diabetes mellitus with hyperglycemia; Z79.4 - exterminator termite (current) use of insulin; Z79.4 - exterminator termite (current) use of insulin; Z79.4 - exterminator termite ( current) use of insulin; Z79.4 - exterminator termite (current) use of insulin (4) Hypertension Status: Chronic Qualifiers: Hypertension type: essential hypertension (5) Nicotine dependence Status: Suspected Qualifiers: Nicotine product type: cigarettes Substance use status: in withdrawal Qualified Code(s): F17.213 - Nicotine dependence, cigarettes, with withdrawal - AMA Did Patient Leave Against Medical Advice: No
== END 2017-09-16 14:15 | disposition home or self-care (01) | DRG 775 ==
LOC: YASAS 12:44 → Y3N 17:04
PROVIDERS: ADMIT Internal Medicine; ATTEND Internal Medicine
PROC: HZ2ZZZZ Detoxification Services for Substance Abuse Treatment (ICD-10-PCS; principal; 2017-09-12)
DX: F10.230 Alcohol dependence with withdrawal, uncomplicated (principal); F17.210 Nicotine dependence, cigarettes, uncomplicated; F32.9 Major depressive disorder, single episode, unspecified; G47.00 Insomnia, unspecified; I10 Essential (primary) hypertension; E11.9 Type 2 diabetes mellitus without complications; Z79.4 Long term (current) use of insulin
CPT/HCPCS: 36415; 71046-TC-FY; 80053; 81003; 82962; 85027; 86593; 86780; 87389; 93005; 93010